=== PATIENT | male | born 1945 ===

== ENCOUNTER 2024-09-18 15:53 | Emergency (ER) | payer MEDICARE ==
[~2024-09-18] VITALS: Ht 185.4 cm; Wt 90.1 kg
[2024-09-18 16:35] VITALS: BP 105/78; PULSE 71; RESP 21; TEMP 97.8; O2SAT 95
== END 2024-09-18 23:00 | disposition home or self-care (01) ==
LOC: ER 15:54
DX: R07.89 Other chest pain (principal); Z88.0 Allergy status to penicillin
CPT/HCPCS: 71045; 93005; 99283